=== PATIENT | male | born 1980 | race African-American/Black ===

== ENCOUNTER 2017-03-04 18:27 | Emergency (ER) | payer MEDICAID ==
[~2017-03-04] VITALS: Ht 185.4 cm; Wt 104.0 kg
[2017-03-04 18:28] VITALS: BP 131/85
== END 2017-03-04 21:28 | disposition left against medical advice (07) ==
LOC: ER 18:42
DX: Z53.21 Procedure and treatment not carried out due to patient leaving prior to being seen by health care provider (principal)